=== PATIENT | male | born 1945 | race Caucasian/White ===

== ENCOUNTER 2021-05-13 11:03 | Inpatient (IN) | payer MEDICARE, SELFPAY ==
[~2021-05-13] VITALS: Ht 170.2 cm; Wt 136.1 kg
--- NOTE | 2021-05-13 14:40 | NUR ---
ADMISSION NOTE Received patient from [facility] via [facility]. Patient direct admitted with diagnosis of covid pneumonia. Patient is awake, alert, oriented X . Patient oriented to hospital room, call light, toileting, pain management and safety-teach back done. Patient informed that will be nurse and that their room number is . Personal belongings checked and Belongings List documented. Call light within reach.
[2021-05-13 15:00] VITALS: BP_SYST 144
[2021-05-13] MEDS ORDERED: BETA45CR3 TP (15:50)
[2021-05-13] MEDS ORDERED: FURO-150 PO (15:50)
[2021-05-13] MEDS ORDERED: CYCL2DRO EACH EYE (15:50)
[2021-05-13] MEDS ORDERED: LIP20 PO (15:50)
[2021-05-13] MEDS ORDERED: MELO15TA13 PO (15:50)
[2021-05-13] MEDS ORDERED: ASPI-1457 PO (15:50)
[2021-05-13 15:51] VITALS: BP_SYST 142
[2021-05-13] MEDS ORDERED: DEXTROSE 50% JECT 50 ML DISP.SYRIN IVP PRN (17:00)
--- NOTE | 2021-05-13 17:45 | NUR ---
CONSULTATION PAGED REASON FOR CONSULTATION:CHF WAS CONSULT CALLED?Y PERSON WHO WAS NOTIFIED:JUAN ANTONIO CONSULTING PHYSICIAN:ROSAS RODRIGUEZ MURAL ARTIST SPECIALTY:CARDIO MURAL ARTIST PHONE NUMBER:[phone] REQUESTING PHYSICIAN:Tucker AMARALUHAIR
[2021-05-13 18:10] LABS: BASOPHILS % (AUTO) 0.5 % (0.0-2.0); HEMATOCRIT 41.9 % (36-54); HEMOGLOBIN 14.5 g/dL (14.0-18.0); LYMPHOCYTES # (AUTO) 0.5 K/uL (1.0-5.5); LYMPHOCYTES % (AUTO) 10.1 % (20.5-51.5); MEAN CORPUSCULAR HEMOGLOBIN 34 pg (27-31); MEAN CORPUSCULAR HGB CONC 35 % (32-36); MEAN CORPUSCULAR VOLUME 96 fL (79.0-98.0); MONOCYTES # (AUTO) 0.4 K/uL (0.0-1.0); MONOCYTES % (AUTO) 8.7 % (1.7-9.3); NEUTROPHILS # (AUTO) 3.9 K/uL (1.8-7.7); NEUTROPHILS % (AUTO) 80.7 % (40.0-70.0); PLATELET COUNT (AUTO) 155 K/uL (130-430); RED BLOOD CELL COUNT(AUTO) 4.35 MIL/uL (4.2-6.2); RED CELL DISTRIBUTION WIDTH 13.6 % (9.0-15.0); WHITE BLOOD COUNT (AUTO) 4.9 K/uL (4.8-10.8)
[2021-05-13 18:28] LABS: ANION GAP 7 (5-15); CALCIUM 8.8 mg/dL (8.4-11.0); CHLORIDE 95 mmol/L (98-107); GLUCOSE 132 mg/dL (70-99); POTASSIUM 4.3 mmol/L (3.5-5.1); SODIUM SERUM 133 mmol/L (136-145); UREA NITROGEN, BLOOD 19 mg/dL (8-21)
--- NOTE | 2021-05-13 18:39 | NUR ---
CLOSING NOTES: PATIENT IS AWAKE LAYING DOWN IN BED. TOLERATED OXYGEN ON 6L NASAL CANNULA WITH NO DISTRESS NOTED. IV LINE PATENT AND INTACT WITH NO INFILTRATION NOTED. PATIENT STABLE AT THIS TIME. SAFETY, FALL, AND ASPIRATION PRECAUTIONS REMAINED IN PLACE. BED LOCKED IN LOWEST POSITION AND CALL LIGHT IN REACH. WILL ENDORSE PATIENT CARE TO ONCOMING FREIGHT CAR REPAIRER NURSE.
[2021-05-13 18:59] LABS: PROTHROMBIN TIME 10.8 SECS (9.5-12.5)
[2021-05-13] MEDS ORDERED: FUROSEMIDE 40 MG TABLET PO ONE (19:00)
--- NOTE | 2021-05-13 20:03 | NUR ---
CONSULTATION PAGED/CALLED Reason for Consultation: RESP FAILURE Person Who was Notified: SPOKE WITH EXCHANGE Consulting Physician: DEANGELO GÓMEZ A Heavy Duty Mechanic Farm Equipment Specialty: PULMO Ordering Physician: BRISSA GÓMEZ
[2021-05-13] MEDS: CEFEPIME 1 GM in D5W 50 ML IV SCH (21:00)
[2021-05-13] MEDS ORDERED: CHOLECALCIFEROL (VITAMIN D3) 2,000 UNIT TABLET PO ONE (21:00)
[2021-05-13] MEDS ORDERED: cefTRIAXone 1 GM in D5W 50 ML IV SCH (21:00)
[2021-05-13] MEDS ORDERED: DEXAMETHASONE SOD PHOSPHATE 10 MG/ML VIAL IVP SCH (21:00)
[2021-05-13] MEDS: MAGNESIUM OXIDE 400 MG TABLET PO SCH (21:31)
[2021-05-13] MEDS: ASCORBIC ACID 500 MG TABLET PO SCH (21:32)
[2021-05-13] MEDS: ENOXAPARIN SODIUM 100 MG/ML SYRINGE SUBCUT SCH (21:32)
[2021-05-13] MEDS ORDERED: CEFEPIME 1 GM/VIAL (MAXIPIME) ONE (21:34)
[2021-05-13 22:00] VITALS: BP_SYST 142
[2021-05-13] MEDS: FLUCONAZOLE 100 mg/ NS 50 ML IV SCH (22:00)
[2021-05-14] VITALS (7 sets, daily range): BP systolic 122–152
[2021-05-14] MEDS ORDERED: FLUOCINONIDE 0.05% TOPICAL CREAM 15 GM (LIDEX) TP PRN (06:45)
[2021-05-14] MEDS: BUDESONIDE 0.5 MG/2 ML AMPUL.NEB INH SCH (07:00)
[2021-05-14] MEDS: ALBUTEROL MDI INHALATION 8 GM INH INH SCH ×3 (07:00→15:09)
--- NOTE | 2021-05-14 07:11 | NUR ---
Nutrition Update Mor Scale 12 noted. Pt admitted for COVID 19. Diet: mechanical soft, CCHO low carb-45 gm BMI: 47 kg/m2 RD to follow per nutrition care standards.
[2021-05-14 07:34] LABS: BASOPHILS % (AUTO) 0.3 % (0.0-2.0); HEMATOCRIT 43.1 % (36-54); HEMOGLOBIN 14.7 g/dL (14.0-18.0); LYMPHOCYTES # (AUTO) 0.9 K/uL (1.0-5.5); LYMPHOCYTES % (AUTO) 12.6 % (20.5-51.5); MEAN CORPUSCULAR HEMOGLOBIN 33 pg (27-31); MEAN CORPUSCULAR HGB CONC 34 % (32-36); MEAN CORPUSCULAR VOLUME 97 fL (79.0-98.0); MONOCYTES # (AUTO) 0.5 K/uL (0.0-1.0); MONOCYTES % (AUTO) 6.9 % (1.7-9.3); NEUTROPHILS # (AUTO) 5.9 K/uL (1.8-7.7); NEUTROPHILS % (AUTO) 80.2 % (40.0-70.0); PLATELET COUNT (AUTO) 206 K/uL (130-430); RED BLOOD CELL COUNT(AUTO) 4.44 MIL/uL (4.2-6.2); RED CELL DISTRIBUTION WIDTH 13.5 % (9.0-15.0); WHITE BLOOD COUNT (AUTO) 7.4 K/uL (4.8-10.8)
--- NOTE | 2021-05-14 07:40 | NUR ---
OPENING NOTES: RECEIVED REPORT FROM WINDOWS SYSTEM ADMIN NURSE. PATIENT IS AWAKE LAYING DOWN IN BED. TOLERATED OXYGEN SIMPLE MASK AT 8L WITH NO DISTRESS NOTED. IV LINE PATENT AND INTACT WITH NO INFILTRATION NOTED. PATIENT STABLE AT THIS TIME. SAFETY, FALL, AND ASPIRATION PRECAUTIONS ARE IN PLACE. BED LOCKED IN LOWEST POSITION AND CALL LIGHT IN REACH. WILL CONTINUE TO MONITOR PATIENT FOR ANY CHANGES.
[2021-05-14 08:19] LABS: ALANINE AMINOTRANSFERASE 108 U/L (12-78); ALBUMIN 2.7 g/dL (3.4-4.8); ANION GAP 7 (5-15); ASPARTATE AMINOTRANSFERASE 137 U/L (10-37); CALCIUM 8.6 mg/dL (8.4-11.0); CHLORIDE 97 mmol/L (98-107); CREATININE 0.95 mg/dL (0.55-1.30); GLUCOSE 109 mg/dL (70-99); SODIUM SERUM 135 mmol/L (136-145); TOTAL BILIRUBIN 0.4 mg/dL (0.0-1.0); UREA NITROGEN, BLOOD 21 mg/dL (8-21)
--- NOTE | 2021-05-14 08:40 | NUR ---
PATIENT RESULT FOR RAPID IS POSITIVE. DR. COONEY SAID NO NEED TO ORDER PCR.
[2021-05-14] MEDS: CHOLECALCIFEROL (VITAMIN D3) 2,000 UNIT TABLET PO SCH (08:49)
[2021-05-14] MEDS: ASCORBIC ACID 500 MG TABLET PO SCH ×2 (08:49→21:27)
[2021-05-14] MEDS: MAGNESIUM OXIDE 400 MG TABLET PO SCH ×2 (08:49→21:28)
[2021-05-14] MEDS: CEFEPIME 1 GM in D5W 50 ML IV SCH ×2 (08:49→21:26)
[2021-05-14] MEDS: MELOXICAM 7.5 MG TABLET PO SCH (08:50)
[2021-05-14] MEDS: ASPIRIN 81 MG TABLET(ECOTRIN) PO SCH (08:54)
[2021-05-14] MEDS: ATORVASTATIN 20 MG TABLET PO SCH (08:54)
[2021-05-14] MEDS: FUROSEMIDE 20 MG TABLET PO SCH ×2 (08:55→17:05)
[2021-05-14] MEDS: DEXAMETHASONE SOD PHOSPHATE 10 MG/ML VIAL IVP SCH (08:55)
[2021-05-14] MEDS: CYCLOPENTOLATE 1% OP SCH (08:57)
[2021-05-14] MEDS ORDERED: FUROSEMIDE 20 MG TABLET PO SCH (09:00)
[2021-05-14] MEDS: ENOXAPARIN SODIUM 100 MG/ML SYRINGE SUBCUT SCH ×2 (09:01→21:28)
[2021-05-14 09:27] LABS: C-REACTIVE PROTEIN QUANT 6.9 mg/dL (0-0.5); CHOLESTEROL 125 mg/dL (<200); HDL CHOLESTEROL 43 mg/dL (>45); LDL CHOLESTEROL 67 mg/dL (<100); TRIGLYCERIDES 82 mg/dL (30-150)
[2021-05-14 13:03] LABS: BILIRUBIN,URINE NEGATIVE (NEGATIVE); BLOOD, URINE 1+ (NEGATIVE); CLARITY/URINE CLEAR (CLEAR); COLOR,URINE YELLOW (YELLOW); GLUCOSE,URINE NEGATIVE (NEGATIVE); KETONES,URINE TRACE (NEGATIVE); LEUKOCYTE ESTERASE ,URINE NEGATIVE (NEGATIVE); NITRITE, URINE NEGATIVE (NEGATIVE); PROTEIN URINE 2+ (NEGATIVE); UROBILINOGEN,URINE 0.2 (0.2-1.0)
[2021-05-14 13:29] LABS: BACTERIA,URINE None Seen /HPF (None Seen); WBC,URINE 0-3 /HPF (0-3)
[2021-05-14] MEDS: INSULIN REGULAR, HUMAN 100 UNITS/ML, 10 ML VIAL (humuLIN R) SUBCUT PRN ×2 (16:56→21:40)
--- NOTE | 2021-05-14 18:35 | NUR ---
CLOSING NOTES: PATIENT IS AWAKE LAYING DOWN IN BED. TOLERATED OXYGEN ON 8L MASK WITH NO DISTRESS NOTED. IV LINE PATENT AND INTACT WITH NO INFILTRATION NOTED. PATIENT STABLE AT THIS TIME. SAFETY, FALL, AND ASPIRATION PRECAUTIONS REMAINED IN PLACE. BED LOCKED IN LOWEST POSITION AND CALL LIGHT IN REACH. WILL ENDORSE PATIENT CARE TO ONCOMING REMOTE INPATIENT CODER NURSE.
--- NOTE | 2021-05-14 21:00 | NUR ---
PT RECEIVED SITTIG AT THE EDGE OF THE BED. DENIED BEING SHORT OF BREATH AT THIS TIME. NO APPARENT SIG OF DISTRESS
[2021-05-14] MEDS: FLUCONAZOLE 100 mg/ NS 50 ML IV SCH (21:27)
[2021-05-14] MEDS: DOCUSATE SODIUM 250 MG CAPSULE PO SCH ×2 (21:27→21:57)
--- NOTE | 2021-05-14 22:55 | NUR ---
DR BRUMFIELD STATED TO START ELIQUIS TOMORROW MORNING
[2021-05-15] VITALS: BP_SYST 118
[2021-05-15] MEDS: ALBUTEROL MDI INHALATION 8 GM INH INH SCH ×4 (00:13→19:47)
--- NOTE | 2021-05-15 06:20 | NUR ---
PT REFUSED TO USE COMMONDE AND INSISTED ON WALKIG TO THE BATHROOM. RN EXPLAINED ITS NOT SAFE AND HIS OXYGEN LEVEL WILL DROP TOO LOW . CHARGE NURSE INFOREMD HIM HE IS NOT SUPOSED TO WALK TO THE BATHROOM . HE REMOVED THE HEART MONTIOR AND LEFT IT ON TABLE AND WENT TO THE [facility]
--- NOTE | 2021-05-15 06:27 | NUR ---
PT STILL SITTING ON TOILED . RN EXPLAIEND AGAIN THE LONGER HE IS IN THERE THE MORE HIS OXYGEN LEVEL WILL DROP AND THE SAFEST THING TO DO IS USE THE COMMONDE, HE STATED HE WAS HAVING DIARRHEA
[2021-05-15] MEDS: INSULIN REGULAR, HUMAN 100 UNITS/ML, 10 ML VIAL (humuLIN R) SUBCUT PRN ×2 (06:41→11:54)
[2021-05-15] MEDS: BUDESONIDE 0.5 MG/2 ML AMPUL.NEB INH SCH ×2 (07:00→19:00)
--- NOTE | 2021-05-15 07:02 | NUR ---
PT ASKED TO HAVE MASK REMOVED AND WEARING NASAL CANULA . INFORMED HIM THE NC WILL NOT KEEP HIS OXYGEN UP HIGH ENOUGH THAT IS WHY HE WAS PUT ON A MASK. HE STATED THE MASK HE MAKING HIM FEEL WORSE. o2 sat 91%
[2021-05-15 07:26] LABS: BASOPHILS % (AUTO) 0.5 % (0.0-2.0); HEMATOCRIT 43.1 % (36-54); LYMPHOCYTES # (AUTO) 0.6 K/uL (1.0-5.5); LYMPHOCYTES % (AUTO) 9.7 % (20.5-51.5); MEAN CORPUSCULAR HEMOGLOBIN 33 pg (27-31); MEAN CORPUSCULAR HGB CONC 35 % (32-36); MEAN CORPUSCULAR VOLUME 96 fL (79.0-98.0); MONOCYTES # (AUTO) 0.4 K/uL (0.0-1.0); MONOCYTES % (AUTO) 6.1 % (1.7-9.3); NEUTROPHILS # (AUTO) 5.6 K/uL (1.8-7.7); NEUTROPHILS % (AUTO) 83.7 % (40.0-70.0); PLATELET COUNT (AUTO) 246 K/uL (130-430); RED CELL DISTRIBUTION WIDTH 13.3 % (9.0-15.0); WHITE BLOOD COUNT (AUTO) 6.6 K/uL (4.8-10.8)
[2021-05-15 08:00] VITALS: BP_SYST 97
[2021-05-15] MEDS: FUROSEMIDE 20 MG TABLET PO SCH ×2 (08:00→18:12)
--- NOTE | 2021-05-15 08:00 | NUR ---
Late Entry (due to patient care) 05/15/21 at 0800: Patient awake, alert, and oriented x 4. No labored breathing or shortness of breath noted at rest. O2 saturation 94% on 8 L via face mask. Respiration rate 18. Lung sounds diminished at bases. Patient ambulatory without assist. Call light and bedside table in reach, bed in lowest position. Encouraged to call.
[2021-05-15] MEDS: BARICITINIB -Non-Formulary 2 MG TABLET PO SCH (09:00)
[2021-05-15 09:09] LABS: ALANINE AMINOTRANSFERASE 114 U/L (12-78); ALBUMIN 2.9 g/dL (3.4-4.8); ANION GAP 13 (5-15); ASPARTATE AMINOTRANSFERASE 128 U/L (10-37); CHLORIDE 98 mmol/L (98-107); CREATININE 0.92 mg/dL (0.55-1.30); GLUCOSE 160 mg/dL (70-99); POTASSIUM 3.8 mmol/L (3.5-5.1); SODIUM SERUM 137 mmol/L (136-145); THYROID STIMULATING HORMONE 0.67 uIu/mL (0.36-3.74); TOTAL BILIRUBIN 0.5 mg/dL (0.0-1.0); UREA NITROGEN, BLOOD 24 mg/dL (8-21)
[2021-05-15] MEDS: CEFEPIME 1 GM in D5W 50 ML IV SCH ×2 (09:46→20:17)
[2021-05-15] MEDS: DEXAMETHASONE SOD PHOSPHATE 10 MG/ML VIAL IVP SCH (09:47)
[2021-05-15] MEDS: ASPIRIN 81 MG TABLET(ECOTRIN) PO SCH (09:49)
[2021-05-15] MEDS: CHOLECALCIFEROL (VITAMIN D3) 2,000 UNIT TABLET PO SCH (09:49)
[2021-05-15] MEDS: CYCLOPENTOLATE 1% OP SCH (09:49)
[2021-05-15] MEDS: MAGNESIUM OXIDE 400 MG TABLET PO SCH ×2 (09:50→20:16)
[2021-05-15] MEDS: ATORVASTATIN 20 MG TABLET PO SCH (09:51)
[2021-05-15] MEDS: ASCORBIC ACID 500 MG TABLET PO SCH ×2 (09:51→20:16)
[2021-05-15] MEDS: MELOXICAM 7.5 MG TABLET PO SCH (09:51)
[2021-05-15] MEDS: ENOXAPARIN SODIUM 100 MG/ML SYRINGE SUBCUT SCH ×2 (10:01→20:16)
--- NOTE | 2021-05-15 11:12 | NUR ---
Dietitian Recommendations * Recommend mechanical soft, CCHO standard carb-60 gm diet w/ Glucerna TID (ONS provides 660 kcal/day, 24 gm protein/day) * Encourage increase PO intakes LP, RD Please refer to Nutrition Assessment for details. Addendum: 05/15/21 at [address] Amended: Links added.
[2021-05-15 12:00] VITALS: BP_SYST 102
--- NOTE | 2021-05-15 12:00 | NUR ---
Notes Patient awake and alert, no pain or shortness of breath noted. All needs met at this time. Bed in lowest position, side rails up, call light in reach, will continue to monitor.
[2021-05-15 14:38] LABS: CHOLESTEROL 127 mg/dL (<200); HDL CHOLESTEROL 42 mg/dL (>45); LDL CHOLESTEROL 70 mg/dL (<100); TRIGLYCERIDES 114 mg/dL (30-150)
[2021-05-15 15:36] VITALS: BP_SYST 151
--- NOTE | 2021-05-15 16:00 | NUR ---
Notes Patient assessed, no signs or symptoms of pain or distress noted. Saturating 93% on 8 L via face mask. Needs met. Call light and bedside table in reach, encouraged to call.
--- NOTE | 2021-05-15 19:30 | NUR ---
Closing Note Patient sitting up in bed finishing dinner, no pain or distress noted. Respirations even and nonlabored. O2 saturation 94% on 8 L via face mask. Bed in lowest position, call light and table in reach. Endorsed to night nurse.
--- NOTE | 2021-05-15 19:35 | NUR ---
ROUNDS PATIENT IN BED, WATCHING TV, VITALS STABLE, DENIES PAIN AT THIS TIME. ASSESSMENT DONE AND DOCUMENTED. SEE FLOWSHEET. NEEDS ATTENDED TO. SAFETY AND FALL MEASURES IN PLACED. BED IN LOW AND LOCKED POSITION. CALL LIGHT PLACED WITHIN REACH.
[2021-05-15 20:00] VITALS: BP_SYST 115
[2021-05-15] MEDS: DOCUSATE SODIUM 250 MG CAPSULE PO SCH (21:00)
[2021-05-15] MEDS: FLUCONAZOLE 100 mg/ NS 50 ML IV SCH (21:47)
--- NOTE | 2021-05-16 00:14 | NUR ---
PATIENT RESTING: Patient resting quietly. No acute distress noted. Vital signs within normal range.
[2021-05-16 01:22] VITALS: BP_SYST 128
[2021-05-16 06:56] LABS: BASOPHILS % (AUTO) 0.3 % (0.0-2.0); HEMATOCRIT 42.6 % (36-54); HEMOGLOBIN 14.9 g/dL (14.0-18.0); LYMPHOCYTES # (AUTO) 0.9 K/uL (1.0-5.5); LYMPHOCYTES % (AUTO) 9.5 % (20.5-51.5); MEAN CORPUSCULAR HEMOGLOBIN 34 pg (27-31); MEAN CORPUSCULAR HGB CONC 35 % (32-36); MEAN CORPUSCULAR VOLUME 96 fL (79.0-98.0); MONOCYTES # (AUTO) 0.9 K/uL (0.0-1.0); MONOCYTES % (AUTO) 9.4 % (1.7-9.3); NEUTROPHILS # (AUTO) 7.5 K/uL (1.8-7.7); NEUTROPHILS % (AUTO) 80.8 % (40.0-70.0); PLATELET COUNT (AUTO) 288 K/uL (130-430); RED BLOOD CELL COUNT(AUTO) 4.43 MIL/uL (4.2-6.2); RED CELL DISTRIBUTION WIDTH 13.2 % (9.0-15.0); WHITE BLOOD COUNT (AUTO) 9.3 K/uL (4.8-10.8)
[2021-05-16] MEDS: BUDESONIDE 0.5 MG/2 ML AMPUL.NEB INH SCH ×2 (07:00→19:00)
[2021-05-16 08:00] VITALS: BP_SYST 119
--- NOTE | 2021-05-16 08:00 | NUR ---
Initial Note Patient awake, alert, and sitting up in bed. No pain or distress observed. Saturating 93% on 8 L via Oxymizer. Respirations even and nonlabored, rate 20 breaths per minute. Patient denies shortness of breath. Lydia RT at bedside. Patient refusing A.M. medications: Lipitor, Meloxicam, and Cyclogyl. Educated on use and benefits of taking medications and risks of refusal. Patient verbalized understanding and continued to refuse. Will notify MD. Placed call light in reach, bed in lowest position. Encouraged to call.
[2021-05-16] MEDS: ENOXAPARIN SODIUM 100 MG/ML SYRINGE SUBCUT SCH ×2 (08:26→20:56)
[2021-05-16] MEDS: CEFEPIME 1 GM in D5W 50 ML IV SCH ×2 (08:26→20:53)
[2021-05-16] MEDS: ASCORBIC ACID 500 MG TABLET PO SCH ×2 (08:26→20:51)
[2021-05-16] MEDS: ASPIRIN 81 MG TABLET(ECOTRIN) PO SCH (08:27)
[2021-05-16] MEDS: DOCUSATE SODIUM 250 MG CAPSULE PO SCH ×2 (08:27→20:51)
[2021-05-16] MEDS: DEXAMETHASONE SOD PHOSPHATE 10 MG/ML VIAL IVP SCH (08:27)
[2021-05-16] MEDS: MAGNESIUM OXIDE 400 MG TABLET PO SCH ×2 (08:28→20:51)
[2021-05-16] MEDS: FUROSEMIDE 20 MG TABLET PO SCH ×2 (08:28→17:42)
[2021-05-16] MEDS: CHOLECALCIFEROL (VITAMIN D3) 2,000 UNIT TABLET PO SCH (08:29)
[2021-05-16] MEDS: BARICITINIB -Non-Formulary 2 MG TABLET PO SCH (08:29)
[2021-05-16] MEDS: CYCLOPENTOLATE 1% OP SCH (08:44)
[2021-05-16] MEDS: MELOXICAM 7.5 MG TABLET PO SCH (08:44)
[2021-05-16] MEDS: ATORVASTATIN 20 MG TABLET PO SCH (08:45)
[2021-05-16 10:09] LABS: ANION GAP 8 (5-15); CALCIUM 8.8 mg/dL (8.4-11.0); CHLORIDE 100 mmol/L (98-107); GLUCOSE 125 mg/dL (70-99); SODIUM SERUM 139 mmol/L (136-145); UREA NITROGEN, BLOOD 21 mg/dL (8-21)
[2021-05-16] MEDS: ALBUTEROL MDI INHALATION 8 GM INH INH SCH ×4 (11:38→23:10)
[2021-05-16 12:00] VITALS: BP_SYST 126
--- NOTE | 2021-05-16 12:00 | NUR ---
Notes Patient saturating 95% on 5 L via Oxymizer. No pain or distress observed. Respirations even and nonlabored. Needs met. Call light, phone, and bedside table in reach. Bed in lowest position. Encouraged to call as needed.
[2021-05-16] MEDS: INSULIN REGULAR, HUMAN 100 UNITS/ML, 10 ML VIAL (humuLIN R) SUBCUT PRN ×2 (12:22→20:57)
[2021-05-16 12:49] LABS: BILIRUBIN,DIRECT 0.2 mg/dL (0.0-0.3); C-REACTIVE PROTEIN QUANT 2.6 mg/dL (0-0.5); TOTAL BILIRUBIN 0.3 mg/dL (0.0-1.0)
[2021-05-16 15:11] VITALS: BP_SYST 126
[2021-05-16 16:00] VITALS: BP_SYST 133
--- NOTE | 2021-05-16 16:00 | NUR ---
Notes Patient saturating 94% on 5 L via Oxymizer, titrated O2 to 4 L, patient tolerating well. O2 saturation 93%. No pain or distress observed or reported. Respirations even and nonlabored. Call light in reach and bed in lowest position. Encouraged to call.
--- NOTE | 2021-05-16 17:00 | NUR ---
Refused Remdesivir Patient refused Remdesivir; patient and Ana Cristina requesting to speak with Dr. Mathieu Chauhan). Notified Dr. Degroot. Addendum: 05/16/21 at 1727 by Sarah Mcguire RN Late entry 1715: Discontinue Remdesivir per Dr. Degroot and do not prescribe or give any more doses of Remdesivir per family and patient request. Will carry out orders.
--- NOTE | 2021-05-16 17:20 | NUR ---
Notes Spoke with spouse Ana Cristina regarding updates; please call with updates at: [phone].
--- NOTE | 2021-05-16 18:51 | NUR ---
Closing Note Patient awake and alert, no pain or distress. O2 saturation 93% on 4 L via N/C. Nonlabored breathing, respirations even. Call light and bedside table in reach, bed locked in lowest position. Will continue to monitor and endorse to night nurse.
--- NOTE | 2021-05-16 19:40 | NUR ---
ROUNDS PATIENT RESTING IN BED, VITALS STABLE, DENIES PAIN AT THIS TIME. ASSESSMENT DONE AND DOCUMENTED. NEEDS ATTENDED TO. SAFETY MEASURES IN PLACED. CALL LIGHT PLACED WITHIN REACH.
[2021-05-16 20:00] VITALS: BP_SYST 124
[2021-05-16] MEDS: FLUCONAZOLE 100 mg/ NS 50 ML IV SCH (21:00)
--- NOTE | 2021-05-16 21:00 | NUR ---
MEDICATION PATIENT REFUSED DUE DIFLUCAN IV SAYING HE DOES NOT WANT ANYMORE MEDICATION BECAUSE HE HAS PLENTY AND IT IS ALWAYS CHANGED. RISKS AND BENEFITS EXPLAINED TO PATIENT, STILL REFUSED DUE MEDICATION. WILL CONTINUE TO MONITOR.
[2021-05-17] VITALS: BP_SYST 118
[2021-05-17 06:30] LABS: BASOPHILS # (AUTO) 0.1 K/uL (0.0-0.2); BASOPHILS % (AUTO) 0.5 % (0.0-2.0); HEMATOCRIT 42.6 % (36-54); HEMOGLOBIN 14.4 g/dL (14.0-18.0); LYMPHOCYTES # (AUTO) 0.9 K/uL (1.0-5.5); LYMPHOCYTES % (AUTO) 8.9 % (20.5-51.5); MEAN CORPUSCULAR HEMOGLOBIN 33 pg (27-31); MEAN CORPUSCULAR HGB CONC 34 % (32-36); MEAN CORPUSCULAR VOLUME 97 fL (79.0-98.0); MONOCYTES # (AUTO) 1.1 K/uL (0.0-1.0); MONOCYTES % (AUTO) 11.9 % (1.7-9.3); NEUTROPHILS # (AUTO) 7.5 K/uL (1.8-7.7); NEUTROPHILS % (AUTO) 78.7 % (40.0-70.0); PLATELET COUNT (AUTO) 283 K/uL (130-430); RED CELL DISTRIBUTION WIDTH 13.1 % (9.0-15.0); WHITE BLOOD COUNT (AUTO) 9.6 K/uL (4.8-10.8)
--- NOTE | 2021-05-17 06:55 | NUR ---
CLOSING NOTES PATIENT AWAKE, SITTING UP IN BED, NO COMPLAINTS AT THIS TIME. TELE LEADS FIXED. ALL NEEDS ATTENDED TO. CALL LIGHT PLACED WITHIN REACH.
[2021-05-17] MEDS: ALBUTEROL MDI INHALATION 8 GM INH INH SCH ×3 (07:00→15:00)
[2021-05-17] MEDS: BUDESONIDE 0.5 MG/2 ML AMPUL.NEB INH SCH (07:00)
[2021-05-17 08:00] VITALS: BP_SYST 129
--- NOTE | 2021-05-17 08:00 | NUR ---
Initial Note Patient sitting on side of bed awake, alert, and oriented x 4. No pain or distress observed or reported. Saturating 96% on 4 L via N/C. Titrated O2 to 3 L, patient saturating 93% and denies shortness of breath. Respirations even and nonlabored, rate 18 breaths per minute. No fever present. Needs addressed at this time. Patient ambulatory without assist, encouraged to call as needed. Call light, phone, and bedside table within reach. Bed locked in lowest position.
[2021-05-17] MEDS: ENOXAPARIN SODIUM 100 MG/ML SYRINGE SUBCUT SCH ×2 (08:28→20:53)
[2021-05-17] MEDS: FUROSEMIDE 20 MG TABLET PO SCH ×2 (08:29→18:17)
[2021-05-17] MEDS: ASPIRIN 81 MG TABLET(ECOTRIN) PO SCH (08:29)
[2021-05-17] MEDS: CEFEPIME 1 GM in D5W 50 ML IV SCH ×2 (08:30→20:55)
[2021-05-17] MEDS: ASCORBIC ACID 500 MG TABLET PO SCH ×2 (08:30→20:51)
[2021-05-17] MEDS: DOCUSATE SODIUM 250 MG CAPSULE PO SCH ×2 (08:30→20:51)
[2021-05-17] MEDS: MAGNESIUM OXIDE 400 MG TABLET PO SCH ×2 (08:30→20:51)
[2021-05-17] MEDS: CHOLECALCIFEROL (VITAMIN D3) 2,000 UNIT TABLET PO SCH (08:30)
[2021-05-17] MEDS: BARICITINIB -Non-Formulary 2 MG TABLET PO SCH (08:31)
[2021-05-17] MEDS: DEXAMETHASONE SOD PHOSPHATE 10 MG/ML VIAL IVP SCH (08:31)
[2021-05-17 09:23] LABS: ALANINE AMINOTRANSFERASE 195 U/L (12-78); ANION GAP 6 (5-15); ASPARTATE AMINOTRANSFERASE 136 U/L (10-37); CALCIUM 8.7 mg/dL (8.4-11.0); CHLORIDE 101 mmol/L (98-107); GLUCOSE 122 mg/dL (70-99); POTASSIUM 3.8 mmol/L (3.5-5.1); SODIUM SERUM 141 mmol/L (136-145); TOTAL BILIRUBIN 0.6 mg/dL (0.0-1.0); UREA NITROGEN, BLOOD 23 mg/dL (8-21)
[2021-05-17 12:30] VITALS: BP_SYST 131
--- NOTE | 2021-05-17 12:30 | NUR ---
Notes Patient sitting up in chair, no pain or distress noted. Saturating 96% on 3 L via N/C. No shortness of breath. Needs addressed. About to eat lunch. Linens and gown changed. Call light and bedside table in reach, bed in lowest position. Encouraged to call.
[2021-05-17 14:10] LABS: C-REACTIVE PROTEIN QUANT 1.1 mg/dL (0-0.5)
[2021-05-17 16:30] VITALS: BP_SYST 123
--- NOTE | 2021-05-17 16:34 | NUR ---
Notes Patient sitting up on edge of bed, no pain or distress observed. O2 saturation 95% on 3 L via N/C. No shortness of breath. Respirations even and nonlabored, rate 18 breaths per minute. States he is feeling better and will be going home tomorrow per MD. Call light, belongings, and bedside table placed within reach and bed locked in lowest position. Encouraged to call.
--- NOTE | 2021-05-17 18:40 | NUR ---
Closing Note Patient sitting up on side of bed, no pain or distress noted. Saturating 95% on 2 L via N/C. Patient ambulatory without assist. States he is feeling better. All needs met. Call light, bedside table, and phone within reach. Bed locked in lowest position. Encouraged to call. Will continue to monitor and endorse to night nurse.
--- NOTE | 2021-05-17 19:40 | NUR ---
ROUNDS PATIENT IN BED, WATCHING TV, NOT IN DISTRESS, VITALS STABLE. ASSESSMENT DONE AND DOCUMENTED. SEE FLOWSHEET. NEEDS ATTENDED TO. SAFETY MEASURES IN PLACED. CALL LIGHT PLACED WITHIN REACH.
[2021-05-17] MEDS: FLUCONAZOLE 100 mg/ NS 50 ML IV SCH (21:00)
--- NOTE | 2021-05-17 21:05 | NUR ---
NOTES PATIENT REFUSED DUE MEDICATION DIFLUCAN IV SAYING HE DOES NOT WANT IT, NO MORE IV MEDICATION FOR HIM AND HE IS GOING HIM TOMORROW. RISKS AND BENEFITS EXPLAINED. WILL CONTINUE TO MONITOR.
--- NOTE | 2021-05-18 00:15 | NUR ---
PATIENT RESTING: Patient resting quietly. No acute distress noted. Vital signs within normal range.
[2021-05-18 00:30] VITALS: BP_SYST 139
[2021-05-18 06:54] LABS: BASOPHILS % (AUTO) 0.4 % (0.0-2.0); HEMOGLOBIN 14.7 g/dL (14.0-18.0); LYMPHOCYTES # (AUTO) 1.4 K/uL (1.0-5.5); LYMPHOCYTES % (AUTO) 14.2 % (20.5-51.5); MEAN CORPUSCULAR HEMOGLOBIN 33 pg (27-31); MEAN CORPUSCULAR HGB CONC 34 % (32-36); MEAN CORPUSCULAR VOLUME 97 fL (79.0-98.0); MONOCYTES # (AUTO) 0.9 K/uL (0.0-1.0); MONOCYTES % (AUTO) 8.7 % (1.7-9.3); NEUTROPHILS # (AUTO) 7.5 K/uL (1.8-7.7); NEUTROPHILS % (AUTO) 76.7 % (40.0-70.0); PLATELET COUNT (AUTO) 328 K/uL (130-430); RED BLOOD CELL COUNT(AUTO) 4.42 MIL/uL (4.2-6.2); RED CELL DISTRIBUTION WIDTH 13.3 % (9.0-15.0); WHITE BLOOD COUNT (AUTO) 9.7 K/uL (4.8-10.8)
--- NOTE | 2021-05-18 06:58 | NUR ---
CLOSING NOTES PATIENT AWAKE, ACCU CHECK DONE WITH BLOOD SUGAR OF 119. NO INSULIN COVERAGE. ALL NEEDS ATTENDED TO. SAFETY MEASURES MAINTAINED. CALL LIGHT PLACED WITHIN REACH.
[2021-05-18] MEDS: BUDESONIDE 0.5 MG/2 ML AMPUL.NEB INH SCH ×2 (07:00→19:00)
--- NOTE | 2021-05-18 07:56 | NUR ---
OPENING NOTE Received shift report from mini shifter RN. Patient is AxOx4 and currently resting in bed. Patient on 2 L NC and tolerating well. Bed locked in lowest position and call light is within reach. IV is patent and saline-locked. On contact precautions. Will continue to monitor.
[2021-05-18 08:00] VITALS: BP_SYST 135
[2021-05-18 08:08] LABS: ALANINE AMINOTRANSFERASE 263 U/L (12-78); ANION GAP 8 (5-15); ASPARTATE AMINOTRANSFERASE 163 U/L (10-37); CALCIUM 8.6 mg/dL (8.4-11.0); CHLORIDE 100 mmol/L (98-107); CREATININE 0.85 mg/dL (0.55-1.30); GLUCOSE 106 mg/dL (70-99); POTASSIUM 3.6 mmol/L (3.5-5.1); SODIUM SERUM 139 mmol/L (136-145); TOTAL BILIRUBIN 0.6 mg/dL (0.0-1.0); UREA NITROGEN, BLOOD 21 mg/dL (8-21)
[2021-05-18] MEDS: ALBUTEROL MDI INHALATION 8 GM INH INH SCH ×4 (08:16→19:00)
[2021-05-18] MEDS: DOCUSATE SODIUM 250 MG CAPSULE PO SCH ×4 (09:00→21:00)
[2021-05-18] MEDS: ASCORBIC ACID 500 MG TABLET PO SCH ×3 (09:00→21:00)
[2021-05-18] MEDS: BARICITINIB -Non-Formulary 2 MG TABLET PO SCH (09:00)
[2021-05-18] MEDS: CEFEPIME 1 GM in D5W 50 ML IV SCH ×2 (09:01→20:55)
[2021-05-18] MEDS: MAGNESIUM OXIDE 400 MG TABLET PO SCH ×3 (09:01→21:00)
[2021-05-18] MEDS: CHOLECALCIFEROL (VITAMIN D3) 2,000 UNIT TABLET PO SCH (09:01)
[2021-05-18] MEDS: ASPIRIN 81 MG TABLET(ECOTRIN) PO SCH (09:01)
[2021-05-18] MEDS: DEXAMETHASONE SOD PHOSPHATE 10 MG/ML VIAL IVP SCH (09:02)
[2021-05-18] MEDS: ENOXAPARIN SODIUM 100 MG/ML SYRINGE SUBCUT SCH ×2 (09:03→21:55)
[2021-05-18] MEDS: FUROSEMIDE 20 MG TABLET PO SCH ×2 (09:04→17:14)
--- NOTE | 2021-05-18 11:26 | NUR ---
O2 walking saturation Patient taken off oxygen. O2 sat at 93% on room air before exercise. Patient ambulated around room, O2 sat at 89% on RA while ambulating. Patient sitting back in bed. O2 sat at 89% on RA after ambulation. Patient back on 2 L nasal cannula with O2 sat at 91%. Will continue to monitor.
[2021-05-18 12:00] VITALS: BP_SYST 149
--- NOTE | 2021-05-18 13:37 | NUR ---
Dr. Carmen watkins MD to see patient. Written prescriptions for discharge home. Will follow up with any new orders.
[2021-05-18] MEDS ORDERED: ALBU2.5V7 INH (13:49)
--- NOTE | 2021-05-18 14:42 | NUR ---
Patient liver enzymes are elevated. Dr. Morales input orders for US of abdomen and if normal, ok to discharge. Waiting for home O2 to be set up. Will continue to monitor.
[2021-05-18 16:30] VITALS: BP_SYST 136
--- NOTE | 2021-05-18 16:38 | NUR ---
Discharge Planning: DCP faxed pt referral to [facility] (F [phone] P [phone] [facility]) DCP spoke to patient to get a point of contact. Pts Ana Cristina [phone], DCP made him aware if going private pay a CC will have to be left on file. DCP to follow up
--- NOTE | 2021-05-18 16:55 | NUR ---
RN NOTE Patient wants to leave hospital. Dr. Morales to see patient. Orders for abdominal ultrasound and hold discharge. Spoke with patient and , does not want to leave AMA without home oxygen. Informed Dr. Morales on the floor. Will continue to monitor.
--- NOTE | 2021-05-18 17:25 | NUR ---
Patient refusing abdominal ultrasound. Dr. Morales made aware. Will continue to monitor.
--- NOTE | 2021-05-18 18:36 | NUR ---
CLOSING NOTE Patient currently resting in bed and on 1 L NC and tolerating well. IV site is patent and saline-locked. Bed in lowest position and call light is within reach. All needs met. Droplet precautions remain in place. Will endorse to electronics maintenance technician RN.
[2021-05-18 20:00] VITALS: BP_SYST 115
[2021-05-18] MEDS: FLUCONAZOLE 100 mg/ NS 50 ML IV SCH ×2 (21:00→21:52)
--- NOTE | 2021-05-18 22:18 | NUR ---
Patient refused all meds except lovenox and cefepime. Patient said he was being held against his will. He wants to go home. But he does not want to go home until oxygen is delivered to his home. I told him [facility] was working to get him oxygen to home since he is a [facility] patient [facility] would be handling that.
[2021-05-19] VITALS: BP_SYST 135
[2021-05-19 04:00] VITALS: BP_SYST 133
--- NOTE | 2021-05-19 04:40 | NUR ---
patient removed his continuous oxymetery. He said he did not need it. I explained the importance of constant oxygen saturation monitor. Patient said he does not need that.
[2021-05-19] MEDS: ALBUTEROL MDI INHALATION 8 GM INH INH SCH ×2 (06:05→12:47)
[2021-05-19 06:58] LABS: BASOPHILS % (AUTO) 0.2 % (0.0-2.0); EOSINOPHILS % (AUTO) 0.1 % (0.0-4.0); HEMATOCRIT 42.8 % (36-54); HEMOGLOBIN 14.6 g/dL (14.0-18.0); LYMPHOCYTES # (AUTO) 1.9 K/uL (1.0-5.5); LYMPHOCYTES % (AUTO) 14.6 % (20.5-51.5); MEAN CORPUSCULAR HEMOGLOBIN 33 pg (27-31); MEAN CORPUSCULAR HGB CONC 34 % (32-36); MEAN CORPUSCULAR VOLUME 97 fL (79.0-98.0); MONOCYTES % (AUTO) 7.9 % (1.7-9.3); NEUTROPHILS # (AUTO) 10.3 K/uL (1.8-7.7); NEUTROPHILS % (AUTO) 77.2 % (40.0-70.0); PLATELET COUNT (AUTO) 351 K/uL (130-430); RED BLOOD CELL COUNT(AUTO) 4.44 MIL/uL (4.2-6.2); WHITE BLOOD COUNT (AUTO) 13.3 K/uL (4.8-10.8)
[2021-05-19] MEDS: BUDESONIDE 0.5 MG/2 ML AMPUL.NEB INH SCH (07:00)
[2021-05-19 07:29] LABS: ALANINE AMINOTRANSFERASE 319 U/L (12-78); ALBUMIN 3.1 g/dL (3.4-4.8); ANION GAP 7 (5-15); ASPARTATE AMINOTRANSFERASE 175 U/L (10-37); CALCIUM 8.9 mg/dL (8.4-11.0); CHLORIDE 102 mmol/L (98-107); GLUCOSE 100 mg/dL (70-99); POTASSIUM 3.5 mmol/L (3.5-5.1); SODIUM SERUM 140 mmol/L (136-145); TOTAL BILIRUBIN 0.6 mg/dL (0.0-1.0); UREA NITROGEN, BLOOD 31 mg/dL (8-21)
--- NOTE | 2021-05-19 07:30 | NUR ---
OPENING NOTE Received report from accounts receivable collector RN. Patient is currently resting in bed and is on 1 L NC tolerating well. IV site remains patent and saline-locked. Bed in lowest position and call light is within reach. Will continue to monitor.
[2021-05-19 08:00] VITALS: BP_SYST 121
[2021-05-19] MEDS: FUROSEMIDE 20 MG TABLET PO SCH (08:00)
[2021-05-19] MEDS: ENOXAPARIN SODIUM 100 MG/ML SYRINGE SUBCUT SCH (09:00)
[2021-05-19] MEDS: ASCORBIC ACID 500 MG TABLET PO SCH (09:00)
[2021-05-19] MEDS: CEFEPIME 1 GM in D5W 50 ML IV SCH (09:00)
[2021-05-19] MEDS: MAGNESIUM OXIDE 400 MG TABLET PO SCH (09:00)
[2021-05-19] MEDS: DEXAMETHASONE SOD PHOSPHATE 10 MG/ML VIAL IVP SCH (09:00)
[2021-05-19] MEDS: ASPIRIN 81 MG TABLET(ECOTRIN) PO SCH (09:00)
[2021-05-19] MEDS: BARICITINIB -Non-Formulary 2 MG TABLET PO SCH (09:00)
[2021-05-19] MEDS: DOCUSATE SODIUM 250 MG CAPSULE PO SCH (09:00)
[2021-05-19] MEDS: CHOLECALCIFEROL (VITAMIN D3) 2,000 UNIT TABLET PO SCH (09:00)
--- NOTE | 2021-05-19 09:06 | NUR ---
PATIENT REFUSED ALL MORNING MEDICATIONS Educated patient on importance of medications, including antibiotics and lovenox. Patient refused all meds stating "they just want to charge me for it."
--- NOTE | 2021-05-19 10:04 | NUR ---
CM: Call placed to [facility] regarding patient discharge to home with H/H, oxygen and nebulizer machine, spoke with Rafaela (habitat management coordinator), stated that H/H has already been arranged and that will O2 and nebulizer will also be arranged.
[2021-05-19 10:55] VITALS: BP_SYST 121
[2021-05-19 12:00] VITALS: BP_SYST 137
[2021-05-19 12:32] VITALS: BP_SYST 137
--- NOTE | 2021-05-19 12:52 | NUR ---
RN NOTE Spoke with Dr. Levy in AM, said that patient is ok to go home without oxygen if saturation is above 90%. Spoke with Dr. Morales, received discharge order for DC home and follow up with PCP in 2 days. Noted and carried out. Patient's O2 sat is 93% on room air. Informed patient and , Ana Cristina of discharge plan.
--- NOTE | 2021-05-19 13:09 | NUR ---
D/C Patient Patient given medication reconciliation form and D/C instructions. Exit Care provided. Patient verbalized understanding. MD discussed with patient the results and treatment provided. Ambulatory with steady gait for discharge to home. Patient in stable condition, ID band removed. IV catheter removed, intact and dressing applied, no active bleeding. Written prescriptions given to patient. Patient educated on COVID- 19 isolation. All belongings sent with patient.
== END 2021-05-19 13:09 | disposition home health service (06) | DRG 177 ==
LOC: STU 15:03
PROVIDERS: ADMIT Internal Medicine; ATTEND Internal Medicine
PROC: XW033E5 Introduction of Remdesivir Anti-infective into Peripheral Vein, Percutaneous Approach, New Technology Group 5 (ICD-10-PCS; principal; 2021-05-16)
DX: U07.1 COVID-19 (principal); J12.82 Pneumonia due to coronavirus disease 2019; J96.01 Acute respiratory failure with hypoxia; I47.1 Supraventricular tachycardia; B17.9 Acute viral hepatitis, unspecified; Z68.42 Body mass index [BMI] 45.0-49.9, adult; E66.01 Morbid (severe) obesity due to excess calories; E78.5 Hyperlipidemia, unspecified; M17.0 Bilateral primary osteoarthritis of knee; K21.9 Gastro-esophageal reflux disease without esophagitis; M85.80 Other specified disorders of bone density and structure, unspecified site; R74.01 Elevation of levels of liver transaminase levels; I87.8 Other specified disorders of veins; R73.03 Prediabetes; Z79.82 Long term (current) use of aspirin; Z79.84 Long term (current) use of oral hypoglycemic drugs; Z79.899 Other long term (current) drug therapy; Z88.6 Allergy status to analgesic agent; Z88.1 Allergy status to other antibiotic agents; Z88.5 Allergy status to narcotic agent; Z88.8 Allergy status to other drugs, medicaments and biological substances; Z91.041 Radiographic dye allergy status
CPT/HCPCS: 36415; 71045; 80048; 80053; 80061; 80076; 81000; 82728; 82962; 83036; 83735; 83880; 84443; 85025; 85379; 85610-TC; 85730-TC; 86140; 93005; 93306; 93970; 94010; 94640; 94664; 94760; G0378; J0692; J0696; J1100; J1450; J1650; J1815; J7050; J7060; J7626